=== PATIENT | female | born 1970 | race Caucasian/White ===

== ENCOUNTER 2025-06-11 12:53 | Outpatient (CLI) | payer BC | END 2025-06-11 12:54 | disposition home or self-care (01) | LOC: MRI 12:53 | PROVIDERS: ATTEND Neurological Surgery | DX: M47.22 Other spondylosis with radiculopathy, cervical region (principal); M43.17 Spondylolisthesis, lumbosacral region; M47.26 Other spondylosis with radiculopathy, lumbar region; E04.1 Nontoxic single thyroid nodule; Z98.1 Arthrodesis status; M48.07 Spinal stenosis, lumbosacral region; M51.16 Intervertebral disc disorders with radiculopathy, lumbar region; M47.812 Spondylosis without myelopathy or radiculopathy, cervical region | CPT/HCPCS: 72050; 72120; 72125; 72141; 72148 ==